=== PATIENT | male | born 1975 | race Caucasian/White ===

== ENCOUNTER 2016-09-01 20:32 | Emergency (ER) | payer OTHER ==
[~2016-09-01] VITALS: Ht 172.7 cm; Wt 72.5 kg
[~2016-09-01 20:32] MED LIST: AUG875 PO; BACITUD TOP; HYDR-762 PO; IBUP-1542 PO
[2016-09-01 20:38] VITALS: Ht 172.7 cm; Wt 72.5 kg
[2016-09-01] MEDS ORDERED: IBUPROFEN 600 MG TAB PO ONE (22:30)
[2016-09-01] MEDS ORDERED: HYDROCODONE/APAP (5/325) TAB PO ONE (22:30)
--- NOTE | 2016-09-01 23:13 | RADRPT ---
PROCEDURE: US Lower extremity Venous. CLINICAL INDICATION: Right calf pain TECHNIQUE: Multiple sonographic images of the right lower extremity deep venous system was obtaine d utilizing grayscale, color-flow, compressive sonography and doppler imaging with augmentation. COMPARISON: None. FINDINGS: There is normal compressibility / flow within the right common femoral, femoral and popliteal veins. The visualized deep veins of the calf are unremarkable. RPTAT:HJJR IMPRESSION: No sonographic evidence for deep venous thrombosis of the right lower extremity. Physician Jorge Date Time Electronically viewed and signed by Physician Jorge on 09/01/2016 23:13 /
--- NOTE | 2016-09-01 23:21 | RADRPT ---
PROCEDURE: XR Tibia and Fibula. CLINICAL INDICATION: Right leg pain TECHNIQUE: AP and lateral of the right tibia and fibula were obtained, 2 views submitted to the PA CS for review. COMPARISON: None available FINDINGS: The knee joint is not included in the field of view. There is normal mineralization and alignment. No fracture or osseous lesion is identified. There are normal soft tissues without evidence of soft tissue swelling or radiopaque foreign body. RPTAT:HJJR IMPRESSION: Unremarkable visualized right tibia and fibula series. Physician Jorge Date Time Electronically viewed and signed by Physician Jorge on 09/01/2016 23:20 /
[2016-09-01] MEDS ORDERED: IBUP-1542 PO (23:25)
[2016-09-01] MEDS ORDERED: HYDR-906 PO (23:25)
[2016-09-01 23:36] VITALS: BP 125/68; PULSE 78; RESP 18; TEMP 99
--- NOTE | 2016-09-01 23:36 | ERD ---
ER Documentation Chief Complaint Date/Time DATE: 09/01/16 TIME: 23:33 Chief Complaint RIGHT LEG PAIN FROM SKATEBOARDING THIS AFTERNOON. HPI This is a 41-year-old male presents to the ER with right calf pain after he was skateboarding this afternoon. Patient states that he picked up a pop to his calf. Patient has been severe and constant since then, it is worse whenever he bears weight on his leg. Patient denies any ankle pain or foot pain. He also denies any pain. She has not had anything for the pain. He denies any numbness or tingling in extremities ROS 12 point review of systems was done, all negative except per HPI. Medications Home Meds Active Scripts Hydrocodone/Acetaminophen ([place] 5-325 Tablet) 1 Each Tablet, 1 EACH PO Q6 for 3 Days, TAB Prov:TANMAY VARGAS 09/01/16 Ibuprofen* (Motrin*) 600 Mg Tab, 600 MG PO Q6, #30 TAB Prov:TANMAY VARGAS 09/01/16 Ibuprofen* (Motrin*) 600 Mg Tab, 600 MG PO Q6H Y for PAIN AND OR ELEVATED TEMP, #30 TAB Prov:ALEJO VARGASC 05/03/15 Hydrocodone Bit-Acetaminophen* ([place]*) 10-325 Mg Tablet, 1 TAB PO Q6 Y for PAIN , #7 TAB Prov:ALEJO VARGAS-C 05/03/15 Bacitracin* (Bacitracin Oint (UD)*) 1 Applic Oint, 1 APPLIC TOP ONCE for 3 Days , PKT APPLY TO Prov:TANMAY VARGAS 02/03/15 Amoxicillin-Clavulanate K* (Augmentin*) 875 Mg Tab, 875 MG PO BID for 10 Days, TAB Prov:AUDREY ALEXANDRA NP 01/31/15 Ibuprofen* (Ibuprofen*) 600 Mg Tablet, 600 MG PO Q6H Y for PA, #30 TAB Prov:AUDREY ALEXANDRA NP 01/31/15 Allergies Allergies: Coded Allergies: No Known Drug Allergies (Verified Allergy, Unknown, 05/03/15) PMhx/Soc History of Surgery: Yes (ARM) Hx Respiratory Disorders: Yes (ASTHMA) Hx Alcohol Use: No Hx Substance Use: No Hx Tobacco Use: No Smoking Status: Never smoker Physical Exam Vitals Vital Signs Date Time Temp Pulse Resp B/P Pulse Ox O2 Delivery O2 Flow Rate FiO2 09/01/16 20:38 99.4 69 18 127/66 97 Physical Exam GENERAL: The patient is well developed and appropriate for usual state of health , in no apparent distress. HEENT: Atraumatic. CHEST: Clear to auscultation bilaterally. There are no rales, wheezes or rhonchi. HEART: Regular rate and rhythm. No murmurs, clicks, rubs or gallops.. EXTREMITIES: Equal pulses bilaterally. There is no peripheral clubbing, cyanosis or edema. No focal swelling or erythema. Full range of motion. Grossly neurovascularly intact. he is tender to palpation along the calf, however there is no swelling or redness. Negative Nelson test. She has full range of motion of his ankle with no pain. Full range of motion of the knee with no pain. Neurovascularly intact. NEURO: Alert and oriented. Results 24 hrs Current Medications Medications (Trade) Dose Ordered Sig/Shanice Route PRN Reason Start Time Stop Time Status Last Admin Dose Admin Acetaminophen/ Hydrocodone Bitart ([place] (5/325)) 1 tab ONCE ONCE PO 09/01/16 22:30 09/01/16 22:31 DC 09/01/16 22:14 Ibuprofen (Motrin) 600 mg ONCE ONCE PO 09/01/16 22:30 09/01/16 22:31 DC 09/01/16 22:13 Procedures/MDM This is a 41-year-old male presents to the ER with calf pain. At this time there is evidence of fracture dislocation of the tibia fibula. There is no evidence of DVT. Patient may have a muscular strain. She is neurovascularly intact and is able to ambulate in the ER. He has full range of motion of his knee and ankle. Patient will be sent with ibuprofen with [place]. Needs to follow-up with his primary care doctor within 1-2 days or return to ER sooner if symptoms worsen. I discussed with patient the possibility seen orthopedic doctor if symptoms do not improve. Patient understands and agrees with plan Departure Diagnosis: Primary Impression: Pain of right leg Condition: Stable Patient Instructions: Possible Causes of Low Back or Leg Pain Additional Instructions: Call your primary care doctor TOMORROW for an appointment during the next 1-2 days.See the doctor sooner or return here if your condition worsens before your appointment time. YOU MAY NEED TO SEE AN ORTHOPEDIC DOCTOR FOR FURTHER FOLLOW UP IF PAIN CONTINUES. TANMAY VARGAS September 01, 2016 23:36
== END 2016-09-01 23:36 | disposition home or self-care (01) ==
LOC: FTE 20:32
DX: M79.604 Pain in right leg (principal); J45.909 Unspecified asthma, uncomplicated
CPT/HCPCS: 73590; 93971

== ENCOUNTER 2017-09-11 01:34 | Emergency (ER) | END 2017-09-11 02:06 | disposition home or self-care (01) ==